=== PATIENT | female | born 1955 | race Caucasian/White ===

== ENCOUNTER 2020-05-21 08:05 | Day surgery (SDC) | payer BC ==
[2020-05-16 10:58] LABS: BASOPHILS # (AUTO) 0.1 K/uL (0.0-0.2); BASOPHILS % (AUTO) 1.2 % (0.0-2.0); EOSINOPHILS # (AUTO) 0.5 K/uL (0.0-0.4); EOSINOPHILS % (AUTO) 4.5 % (0.0-4.0); LYMPHOCYTES # (AUTO) 4.1 K/uL (1.0-5.5); LYMPHOCYTES % (AUTO) 37.4 % (20.5-51.5); MEAN CORPUSCULAR HEMOGLOBIN 29 pg (27-31); MEAN CORPUSCULAR HGB CONC 33 % (32-36); MEAN CORPUSCULAR VOLUME 86 fL (79.0-98.0); MONOCYTES # (AUTO) 0.7 K/uL (0.0-1.0); MONOCYTES % (AUTO) 6.5 % (1.7-9.3); NEUTROPHILS # (AUTO) 5.5 K/uL (1.8-7.7); NEUTROPHILS % (AUTO) 50.4 % (40.0-70.0); PLATELET COUNT (AUTO) 401 K/uL (130-430); RED CELL DISTRIBUTION WIDTH 14.1 % (9.0-15.0); WHITE BLOOD COUNT (AUTO) 10.9 K/uL (4.8-10.8)
[2020-05-16 11:08] LABS: BILIRUBIN,URINE NEGATIVE (NEGATIVE); BLOOD, URINE NEGATIVE (NEGATIVE); CLARITY/URINE CLEAR (CLEAR); COLOR,URINE YELLOW (YELLOW); GLUCOSE,URINE NEGATIVE (NEGATIVE); KETONES,URINE NEGATIVE (NEGATIVE); LEUKOCYTE ESTERASE ,URINE NEGATIVE (NEGATIVE); NITRITE, URINE NEGATIVE (NEGATIVE); PH,URINE 6.5 (5.0-8.0); PROTEIN URINE NEGATIVE (NEGATIVE); UROBILINOGEN,URINE 0.2 (0.2-1.0)
[~2020-05-21] VITALS: Ht 152.4 cm; Wt 89.4 kg
[~2020-05-21 08:05] MED LIST: CEFAZOLIN SOD 1 GM in D5W 50 ML IV ONE
[2020-05-21] MEDS ORDERED: LISI10TA5 PO (09:53)
[2020-05-21] MEDS ORDERED: ALBMDI INH (09:53)
[2020-05-21] MEDS ORDERED: DET2 PO (09:53)
[2020-05-21] MEDS ORDERED: FLUT1DIS IH (09:53)
[2020-05-21] MEDS ORDERED: MAGN400T10 PO (09:53)
[2020-05-21] MEDS ORDERED: FERR236T3 PO (09:53)
[2020-05-21] MEDS ORDERED: SEVOFLURANE 15 MIN GAS INH ONE (11:14)
[2020-05-21] MEDS ORDERED: LIDOCAINE 1% 10 MG/ML, 20 ML MDV INJ ONE (11:14)
[2020-05-21] MEDS ORDERED: ONDANSETRON HCL 4 MG/2 ML VIAL IVP ONE (11:14)
[2020-05-21] MEDS ORDERED: fentaNYL CITRATE/PF 100 MCG/2 ML AMP IVP ONE (11:14)
[2020-05-21] MEDS ORDERED: BUPIVACAINE /EPINEPHRINE/PF 0.25% 30 ML VIAL INJ ONE (11:14)
[2020-05-21] MEDS ORDERED: PROPOFOL 200MG/ 20ML VIAL (DIPRIVAN) IV ONE (11:14)
[2020-05-21] MEDS ORDERED: WATER FOR IRRIGATION,STERILE 1,000 ML IRRIG.SOLN IR ONE (11:14)
[2020-05-21] MEDS ORDERED: NS 1000 ML IV.SOLN IV ONE (11:14)
[2020-05-21] MEDS ORDERED: CLINDAMYCIN 2% VAGINAL CREAM VG ONE (11:14)
[2020-05-21] MEDS ORDERED: METOCLOPRAMIDE HCL 10 MG/2 ML VIAL IVP ONE (11:14)
[2020-05-21] MEDS ORDERED: ROPIVACAINE HCL/PF 0.2% EPIDURAL 200 ML PLAST..BAG EP ONE (11:14)
[2020-05-21] MEDS ORDERED: NS IRRIG SOLN 1000 ML IR ONE (11:14)
[2020-05-21] MEDS ORDERED: GLYCOPYRROLATE 0.2 MG/ML VIAL IJ ONE (11:14)
[2020-05-21] MEDS ORDERED: NEOSTIGMINE METHYLSULFATE 1 MG/ML, 10 ML VIAL IVP ONE (11:14)
[2020-05-21] MEDS ORDERED: MIDAZOLAM HCL 5 MG/5 ML VIAL IVP ONE (11:14)
[2020-05-21] MEDS ORDERED: POLYMYXIN 500,000/BACIT.10,000 UNITS in NS IRR 1 L IR ONE (12:28)
[2020-05-21] MEDS ORDERED: OXYCODONE/ACETAMINOPHEN 5-325 TABLET PO PRN ×2 (13:45)
[2020-05-21] MEDS ORDERED: ONDANSETRON HCL 4 MG/2 ML VIAL IVP PRN (13:45)
[2020-05-21] MEDS ORDERED: HYDROcodone/ACETAMIN 5-325 MG TAB (NORCO/ VICODIN) PO PRN (13:45)
[2020-05-21 15:30] VITALS: BP_SYST 106
[2020-05-21 15:40] VITALS: BP_SYST 111
[2020-05-21] MEDS: CEFAZOLIN 1 GM IVPB PREMIX 50 ML IV SCH (16:08)
--- NOTE | 2020-05-21 16:09 | NUR ---
received for PACU, alert, oriented, and appropriate. only c/o " hunger", snacks and beverages offered, tolerated well ANCEF ivpb given right now, via R hand, #20. explained a few things she should know as a post op patient, 1/ will check her vs at least every one hour, until stable 2/ IS initiated, 3/ regular diet will start this evening, Besides her NAROPIN pump at 10cc /hr, continuously, she can have Toradol, scheduled at 1800, AND in between she could have [place] if pain persists. 4/ carlton will be discontinued verbalized understanding. now resting
[2020-05-21] MEDS: KETOROLAC TROMETHAMINE 30 MG VIAL IVP SCH (17:21)
[2020-05-22] VITALS: BP_SYST 97
--- NOTE | 2020-05-22 07:38 | NUR ---
OPENING NOTE Patient resting in the bed. No acute distress. AAO x 4. Denied of pain. Skin warm and dry to touch. SL intact to right hand, no redness, no swelling, patent. Abd lap incision x 4 intact with sterile strips, no bleeding not. Q-pump intact, with transparent dressing, no leaking on the site. Safety measure maintained. Call light within reached. Bed locked in low position, side rails up, bed alarm on. Will continue to monitor.
[2020-05-22 07:50] VITALS: BP_SYST 108
--- NOTE | 2020-05-22 09:08 | NUR ---
NOTE Patient resting in the bed. No acute distress. Denied of pain. Skin warm and dry to touch. SL intact to right hand, no redness, no swelling, patent. Safety measure maintained. Call light within reached. Bed locked in low position, side rails up, bed alarm on. Continue to monitor.
--- NOTE | 2020-05-22 11:20 | NUR ---
ROUND Patient resting in the bed. No acute distress. Patient not void yet. Per patient not feeling urge to go. Safety measure maintained. Call light within reached. Continue to monitor.
[2020-05-22 11:30] VITALS: BP_SYST 114
[2020-05-22] MEDS: KETOROLAC TROMETHAMINE 30 MG VIAL IVP SCH ×2 (12:23→18:49)
--- NOTE | 2020-05-22 14:25 | NUR ---
PATIENT STILL NOT VOID AT THIS TIME. PER PATIENT WILL TRY TO VOID AGAIN. CONTINUE TO MONITOR.
[2020-05-22] MEDS: CEFAZOLIN 1 GM IVPB PREMIX 50 ML IV SCH (15:17)
[2020-05-22 15:38] VITALS: BP_SYST 117
--- NOTE | 2020-05-22 16:08 | NUR ---
BLADDER SCAN Bladder scan done with 399ml residual. Will insert Kwon catheter as ordered.
--- NOTE | 2020-05-22 16:10 | NUR ---
SAINI CATH: # 16 FR Saini catheter with 10 cc bulb inserted with use of sterile technique. Bulb inflated with 10 cc sterile water. Immediate return of 400 cc yellow urine noted. Bedside drainage bag placed below level of bladder. Pt tolerated procedure well.
--- NOTE | 2020-05-22 17:19 | NUR ---
ATTENDING [employer] TECHNICIAN DR Rishi FAIRCHILD WAS CALLED, RE: TO INFORM PT AFTER FC WAS REMOVED WAS NOT ABLE TO URINATE. F/C WAS REINSERTED AND SHE WANTS TO GO HOME WITH F/C. SPOKE TO JEAN MARIE
--- NOTE | 2020-05-22 18:58 | NUR ---
CLOSING NOTE Patient resting in the bed. No acute distress. Scheduled pain med given as ordered. Skin warm and dry to touch. SL intact to right hand, no redness, no swelling, patent. Abd lap incision x 4 intact with sterile strips, no bleeding not. ON Q-pump intact, with transparent dressing, no leaking on the site. F/C intact, drain gravity. All needs met. Safety measure maintained. Call light within reached. Bed locked in low position, side rails up, bed alarm on. Will endorse to night nurse.
[2020-05-22 19:43] VITALS: BP_SYST 104; BP_SYST 116
== END 2020-05-22 20:21 | disposition home or self-care (01) ==
LOC: SDS 08:05 → SMU 11:09 → SDS 05-22 20:21
PROVIDERS: ATTEND Specialist
DX: R33.9 Retention of urine, unspecified (principal); N81.4 Uterovaginal prolapse, unspecified; N73.6 Female pelvic peritoneal adhesions (postinfective); G47.33 Obstructive sleep apnea (adult) (pediatric); I10 Essential (primary) hypertension; E66.01 Morbid (severe) obesity due to excess calories; Z98.890 Other specified postprocedural states; Z79.899 Other long term (current) drug therapy
CPT/HCPCS: 36415; 57260; 58552; 64488; 71046; 76942; 81003; 84703; 85025; 87081; 88302; 88307; 93005; C1727; J0690 ×2; J1885 ×2; J2001; J2250; J2405; J2704; J2710; J2765; J3010; J3490 ×2; J7030; J7060; S2900; U0003; E0190

== ENCOUNTER 2020-05-22 23:13 | Emergency (ER) | payer BC ==
--- NOTE | 2020-05-22 19:30 | NUR ---
CHANGE OF SHIFT; pt. endorsed with discharge order. paper works being completed by day shift nurse Magraret. pt. made awake.
--- NOTE | 2020-05-22 21:03 | NUR ---
NOTES: NOTES: discharge instructions given to pt. and verbalized understanding. placed leg bag on carlton cath and instructed how to clamp before she sees the MD on tuesday. Dr. Ortega was called for pain medication prescription and ordered to [facility] pharmacy and pt. made aware. pt. will continue her home medications.
--- NOTE | 2020-05-22 21:15 | NUR ---
NOTES: pt. medicated for post op pain before going home.
--- NOTE | 2020-05-22 21:21 | NUR ---
DISCHARGE NOTES; pt. wheeled down by SHELLEY Sparks in stable condition. pt. at the main entrance.
[~2020-05-22 23:13] MED LIST changes: +ALBMDI INH; -CEFAZOLIN SOD 1 GM in D5W 50 ML IV ONE; +DET2 PO; +FERR236T3 PO; +FLUT1DIS IH; +LISI10TA5 PO; +MAGN400T10 PO
--- NOTE | 2020-05-22 23:22 | NUR ---
Note federico in EDM - 05/22/20 at 2329 by ELISSA [facility] Side rails up. Report given to LEO MARK FROM [facility].
== END 2020-05-22 23:22 | disposition left against medical advice (07) ==
LOC: SED 23:13
DX: Z53.21 Procedure and treatment not carried out due to patient leaving prior to being seen by health care provider (principal)